=== PATIENT | female | born 1980 | race Caucasian/White ===

== ENCOUNTER 2017-04-26 08:28 | Emergency (ER) | payer SELFPAY ==
[~2017-04-26] VITALS: Ht 157.5 cm; Wt 52.0 kg
[2017-04-26 08:31] VITALS: Ht 157.5 cm; Wt 52.0 kg
[2017-04-26] MEDS ORDERED: LIDOCAINE 1% (MDV) 20 ML INJ SC ONE (09:00)
[2017-04-26] MEDS ORDERED: IBUP400T22 PO (09:04)
--- NOTE | 2017-04-26 09:14 | ERD ---
ER Documentation Chief Complaint Chief Complaint Laceration to left forearm today HPI 37-year-old female patient with no significant past medical history presents to the ED complaining of a laceration to her left forearm that occurred earlier today as she was cooking. States that she was trying to make scrambled eggs and accidently cut her left forearm with a clean knife as she was cutting foot going into the scrambled eggs. Denies any fever, chills, loss of sensation, loss of range of motion, nausea, vomiting. Patient states that she is up-to- date with her tetanus vaccine. ROS All systems reviewed and are negative except as per history of present illness. Medications Home Meds Active Scripts Ibuprofen* (Motrin*) 400 Mg Tab, 400 MG PO Q6, #30 TAB Prov:RAINE LORENZO PA-C 04/26/17 Allergies Allergies: Coded Allergies: No Known Allergy (Unverified , 04/26/17) PMhx/Soc Hx Alcohol Use: No Hx Substance Use: No Hx Tobacco Use: No Smoking Status: Never smoker Physical Exam Vitals Vital Signs Date Time Temp Pulse Resp B/P Pulse Ox O2 Delivery O2 Flow Rate FiO2 04/26/17 08:31 99.1 77 20 123/83 100 Physical Exam Const: [id number], well-nourished. In no acute distress. Head: Atraumatic, normocephalic Eyes: Normal Conjunctiva without injection ENT: Normal external ear, nose and mouth. Neck: Full range of motion. No meningismus. Resp: Clear to auscultation bilaterally. No wheezing, rhonchi, rales, or crackles. No accessory muscle use. No retractions. Cardio: Regular rate and rhythm, no murmurs Skin: No petechiae or rashes Back: No midline tenderness. No CVA tenderness. Ext: No cyanosis, or edema. Cap refill less than 2 seconds. Distal pulses intact bilaterally. 3 cm linear horizontal laceration on the mid forearm. No visualizations of foreign bodies or tendons or ligaments. No erythema or edema. No bleeding noted. No purulent discharge. No functions or induration. Full range of motion of the DIP, PIP, MCP, wrist, elbow joints of bilateral upper extremities with flexion, extension, supination and pronation. Neur: Awake and alert. Normal gait and coordination. Muscle strength 5/5. Sensation intact bilaterally. Psych: Normal Mood and Affect Results 24 hrs Current Medications Medications (Trade) Dose Ordered Sig/Lor Route PRN Reason Start Time Stop Time Status Last Admin Dose Admin Lidocaine (Xylocaine 1% (Mdv) 20 ml) 20 ml ONCE ONCE SC 04/26/17 09:00 04/26/17 09:01 DC Procedures/MDM This is a 37-year-old female patient with no significant past medical history resents to the ED complaining of a laceration to her left forearm. Patient is afebrile and nontoxic-appearing. Patient has normal vital signs. Patient gave consent to perform laceration repair. Laceration Repair by me: Anesthesia: 5 cc 1% lidocaine locally Location: [left mid forearm, volar aspect] Tendon/Joint/Nerves: No injury Foreign body: None detected after copious irrigation and exploration Technique: 5 5-0 Ethilon Simple Interrupted Sutures Complexity: No subcutaneous sutures/mucosal repair/ edge excision Post Closure Length: [3] cm Patient's bleeding was easily controlled in the department and there is no indication of anemia. Patient is neurovascularly intact. No evidence of compartment syndrome, neurologic injury, fractures, dislocations, vascular injury, open joint, tendon laceration, or foreign body. Patient is appropriate for outpatient follow up. 48 hour wound check. Scar minimization instructions given. Instructed patient to return for suture removal in 7-10 days. Instructed patient to return to the ED sooner for any worsening symptoms. Follow up with primary care physician in 2-3 days. Patient's questions were answered. Patient understood and agreed with discharge plan. Departure Diagnosis: Primary Impression: Forearm laceration Encounter type: initial encounter Laterality: left Qualified Code: S51.812A - Laceration of left forearm, initial encounter Condition: Stable Patient Instructions: Laceration, Extrem (Suture, Staple, Or Tape) Referrals: COMMUNITY CLINICS YOU HAVE RECEIVED A MEDICAL SCREENING EXAM AND THE RESULTS INDICATE THAT YOU DO NOT HAVE A CONDITION THAT REQUIRES URGENT TREATMENT IN THE EMERGENCY DEPARTMENT. FURTHER EVALUATION AND TREATMENT OF YOUR CONDITION CAN WAIT UNTIL YOU ARE SEEN IN YOUR DOCTORS OFFICE WITHIN THE NEXT 1-2 DAYS. IT IS YOUR RESPONSIBILITY TO MAKE AN APPOINTMENT FOR FOLOW-UP CARE. IF YOU HAVE A PRIMARY DOCTOR --you should call your primary doctor and schedule an appointment IF YOU DO NOT HAVE A PRIMARY DOCTOR YOU CAN CALL OUR PHYSICIAN REFERRAL HOTLINE AT IF YOU CAN NOT AFFORD TO SEE A PHYSICIAN YOU CAN CHOSE FROM THE FOLLOWING ON LICENSE OF [facility] CLINICS [facility] [address] [facility] [address] [facility] [address] [facility] [address] [facility] [address] [facility]. [facility]. [address] [facility]. [facility] YOU HAVE RECEIVED A MEDICAL SCREENING EXAM AND THE RESULTS INDICATE THAT YOU DO NOT HAVE A CONDITION THAT REQUIRES URGENT TREATMENT IN THE EMERGENCY DEPARTMENT. FURTHER EVALUATION AND TREATMENT OF YOUR CONDITION CAN WAIT UNTIL YOU ARE SEEN IN YOUR DOCTORS OFFICE WITHIN THE NEXT 1-2 DAYS. IT IS YOUR RESPONSIBILITY TO MAKE AN APPOINTMENT FOR FOLOW-UP CARE. IF YOU HAVE A PRIMARY DOCTOR --you should call your primary doctor and schedule and appointment IF YOU DO NOT HAVE A PRIMARY DOCTOR YOU CAN CALL OUR PHYSICIAN REFERRAL HOTLINE AT . IF YOU CAN NOT AFFORD TO SEE A PHYSICIAN YOU CAN CHOSE FROM THE FOLLOWING [facility] INSTITUTIONS: [facility] [address] [place] [address] [facility] [address] [place] [address] [facility] [address] [place] [address] [facility] URGENT CARE/SPECIALTIES Additional Instructions: Llame al doctor DAVE y ben saniya PADDY PARA DENTRO DE 2-3 FLORES.Dgale a la secretaria que nosotros le instruimos hacer esta paddy.Avise o llame si sal condicin se empeora antes de la paddy. Regresa aqui si peor o no mejor. WOUND CHECK:CONSULTE A SAL MDICO EN 2 jones para nela SAL HERIDA. SUTURE REMOVAL:CONSULTE A SAL MDICO PARA SACAR SAL PUNTOS.PARA LA SHARMILA 5-6 d as.EN OTRO LUGAR 7-10 jones. RAINE LORENZO PA-C Apr 26, 2017 09:14
== END 2017-04-26 09:21 | disposition home or self-care (01) ==
LOC: FTE 08:28
DX: S51.812A Laceration without foreign body of left forearm, initial encounter (principal); W26.0XXA Contact with knife, initial encounter; Y92.9 Unspecified place or not applicable

== ENCOUNTER 2017-04-28 20:45 | Emergency (ER) | payer SELFPAY ==
[~2017-04-28 20:45] MED LIST: IBUP400T22 PO
== END 2017-04-28 21:00 | disposition left against medical advice (07) ==
LOC: E/R 20:45
DX: Z53.21 Procedure and treatment not carried out due to patient leaving prior to being seen by health care provider (principal)

== ENCOUNTER 2017-05-03 08:41 | Emergency (ER) | payer SELFPAY ==
[~2017-05-03] VITALS: Ht 152.4 cm; Wt 51.1 kg
[2017-05-03 08:43] VITALS: Ht 152.4 cm; Wt 51.1 kg
--- NOTE | 2017-05-03 08:59 | ERD ---
ER Documentation Chief Complaint Chief Complaint Patient here for suture removal HPI Patient is a 37-year-old female presents ED for concerns for suture removal. Patient sustained a laceration on 04/26/2017. Patient sustained a laceration to her left forearm while she was cooking. Patient denies any bleeding or discharge from the laceration site. Patient denies any redness or swelling. Patient denies any fevers or chills. Patient is up-to-date with her tetanus vaccination. Patient has no other concerns or complaints at this time. ROS All systems reviewed and are negative except as per history of present illness. Medications Home Meds Active Scripts Ibuprofen* (Motrin*) 400 Mg Tab, 400 MG PO Q6, #30 TAB Prov:RAINE LORENZO PA-C 04/26/17 Allergies Allergies: Coded Allergies: No Known Allergy (Unverified , 05/03/17) PMhx/Soc Medical and Surgical Hx: pt denies Medical Hx, pt denies Surgical Hx Hx Alcohol Use: No Hx Substance Use: No Hx Tobacco Use: No Smoking Status: Never smoker Physical Exam Vitals Vital Signs Date Time Temp Pulse Resp B/P Pulse Ox O2 Delivery O2 Flow Rate FiO2 05/03/17 08:43 98.2 71 20 119/74 100 Physical Exam GENERAL: Well-developed, well-nourished female. Appears in no acute distress. HEAD: Normocephalic, atraumatic. EYES: Pupils are equally reactive bilaterally. EOMs grossly intact. No conjunctival erythema. NECK: Supple. No meningismus. Normal range of motion of the neck. EXTREMITIES: Equal pulses bilaterally. No peripheral clubbing, cyanosis or edema. No unilateral leg swelling. NEUROLOGIC: Alert and oriented. Moving all four extremities without any difficulty. Normal speech. Steady gait. SKIN: 3 cm linear horizontal healing laceration to the mid left forearm. [address] No wound dehiscence noted. No bleeding or discharge. No erythema or warmth or surrounding laceration site. Procedures/MDM MEDICAL DECISION MAKING: This is a 37-year-old female presents ED for concerns of suture removal from laceration she sustained to her left forearm.. Vital signs were reviewed. Patient is afebrile. The wound appears to be healing well with no concerns of acute infection at this time. Five sutures were removed without any difficulty. Small area of wound dehiscence was noted. Steri-Strips were placed over this area. No bleeding noted. Tetanus is up-to-date. Post- procedural wound care was discussed with the patient. Low suspicion for tendon or neurovascular injury. PRESCRIPTIONS: None DISCHARGE: At this time, the patient is stable for discharge and outpatient management. Post-procedural wound care was discussed with the patient. I have instructed the patient to promptly return to the ER for any new or worsening symptoms including increasing pain, fever, warmth, redness or swelling. The patient and/ or family expressed understanding of and agreement with this plan. All questions were answered. Home care instructions were provided. Departure Diagnosis: Primary Impression: Encounter for removal of sutures Condition: Stable Patient Instructions: Staple Removal, No Complication Referrals: [facility] YOU HAVE RECEIVED A MEDICAL SCREENING EXAM AND THE RESULTS INDICATE THAT YOU DO NOT HAVE A CONDITION THAT REQUIRES URGENT TREATMENT IN THE EMERGENCY DEPARTMENT. FURTHER EVALUATION AND TREATMENT OF YOUR CONDITION CAN WAIT UNTIL YOU ARE SEEN IN YOUR DOCTORS OFFICE WITHIN THE NEXT 1-2 DAYS. IT IS YOUR RESPONSIBILITY TO MAKE AN APPOINTMENT FOR FOLOW-UP CARE. IF YOU HAVE A PRIMARY DOCTOR --you should call your primary doctor and schedule an appointment IF YOU DO NOT HAVE A PRIMARY DOCTOR YOU CAN CALL OUR PHYSICIAN REFERRAL HOTLINE AT IF YOU CAN NOT AFFORD TO SEE A PHYSICIAN YOU CAN CHOSE FROM THE FOLLOWING [facility] [address] [facility]. [facility] [address] [facility]. [facility] [address] [facility] [address] [facility] [address] [facility]. [facility]. [address] [facility]. [facility] YOU HAVE RECEIVED A MEDICAL SCREENING EXAM AND THE RESULTS INDICATE THAT YOU DO NOT HAVE A CONDITION THAT REQUIRES URGENT TREATMENT IN THE EMERGENCY DEPARTMENT. FURTHER EVALUATION AND TREATMENT OF YOUR CONDITION CAN WAIT UNTIL YOU ARE SEEN IN YOUR DOCTORS OFFICE WITHIN THE NEXT 1-2 DAYS. IT IS YOUR RESPONSIBILITY TO MAKE AN APPOINTMENT FOR FOLOW-UP CARE. IF YOU HAVE A PRIMARY DOCTOR --you should call your primary doctor and schedule and appointment IF YOU DO NOT HAVE A PRIMARY DOCTOR YOU CAN CALL OUR PHYSICIAN REFERRAL HOTLINE AT . IF YOU CAN NOT AFFORD TO SEE A PHYSICIAN YOU CAN CHOSE FROM THE FOLLOWING [facility]: [facility] [address] [place] [address] [facility] [address] [place] [address] [facility] [address] [place] [address] Additional Instructions: Call your primary care doctor TOMORROW for an appointment during the next 1-2 days.See the doctor sooner or return here if your condition worsens before your appointment time. MAEGAN AVALOS PA-C May 03, 2017 08:59
== END 2017-05-03 09:23 | disposition home or self-care (01) ==
LOC: FTE 08:41
DX: Z48.02 Encounter for removal of sutures (principal)
CPT/HCPCS: 99281

== ENCOUNTER 2018-12-03 23:30 | Emergency (ER) | payer SELFPAY ==
[~2018-12-03] VITALS: Ht 160 cm; Wt 56.7 kg
[~2018-12-03 23:30] MED LIST changes: +IBUP-1561 PO; -IBUP400T22 PO
[2018-12-03 23:31] VITALS: Ht 160 cm; Wt 56.7 kg
--- NOTE | 2018-12-04 00:43 | ERD ---
ER Documentation Chief Complaint Chief Complaint LAC TO LEFT FOOT 9 DAYS AGO; WAS HEALING, OPENED UP AGAIN YESTERDAY HPI This is a 38-year-old female who presents here in the emergency department with complaints of left foot laceration that started 9 days ago after hitting a metal door. 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 Patient stated that the laceration has reopened. Stated that she is concerned that this might have an infection. LMP: Denies headache, head injury, loss of consciousness, dizziness, neck pain, neck stiffness, throat pain, difficulty swallowing, difficulty breathing lying flat, shoulder pain, chest pain, back pain, abdominal pain, nausea, vomiting, constipation, diarrhea, urinary symptoms, or possibility being , loss of bowel and bladder control, difficulty walking due to pain, numbness or tingling sensation, calf pain, recent travel, recent major surgery in the last 3 weeks, calf pain, recent long travel, recent exposure to any illness, recent antibiotic use in the last 3 months, fever, chills, seizures. Past medical history: Denies. Surgical history: . Right breast surgery. Social: Denies smoking, use of alcoholic beverages, use of illegal drugs. ROS All systems reviewed and are negative except as per history of present illness. Medications Home Meds Active Scripts Cephalexin* (Keflex*) 500 Mg Capsule, 500 MG PO TID for 7 Days, CAP Prov:PASILABAN,KLAR F 12/04/18 Ibuprofen* (Motrin*) 600 Mg Tab, 600 MG PO Q6H PRN for PAIN AND OR ELEVATED TEMP, #30 TAB Prov:PASILABAN,KLAR F 12/04/18 Ibuprofen* (Motrin*) 400 Mg Tab, 400 MG PO Q6, #30 TAB Prov:RAINE LORENZO PA-C 04/26/17 Allergies Allergies: Coded Allergies: No Known Allergy (Unverified , 05/03/17) PMhx/Soc Medical and Surgical Hx: pt denies Medical Hx, pt denies Surgical Hx Hx Alcohol Use: No Hx Substance Use: No Hx Tobacco Use: No Smoking Status: Never smoker Physical Exam Vitals Physical Exam Const: No acute distress Head: Atraumatic Eyes: Normal Conjunctiva ENT: Normal External Ears, Nose and Mouth. Neck: Full range of motion. No meningismus. Resp: Clear to auscultation bilaterally Cardio: Regular rate and rhythm, no murmurs Abd: Soft, non tender, non distended. Normal bowel sounds Skin: No petechiae or rashes Back: No midline or flank tenderness Ext: No cyanosis, or edema. Left foot: Dorsal area of the third and fourth digit has a laceration measuring approximately 1 cm in length. No active bleeding. Left pedal pulses within normal limits. Left first/second/third/fourth/fifth toes are unremarkable. No subungual hematoma. Left ankle is unremarkable. Neur: Awake and alert Psych: Normal Mood and Affect Results 24 hrs Laboratory Tests Test 12/04/18 00:45 POC Beta HCG, Qualitative NEGATIVE Current Medications Medications Dose Sig/Lor Start Time Status Last (Trade) Ordered Route PRN Stop Time Admin Dose Reason Admin Diphtheria/ 0.5 ml ONCE ONCE 12/04/18 DC 12/04/18 Tetanus/Acell IM* 01:00 00:53 Pertussis 12/04/18 01:01 (Adacel) Procedures/MDM Diagnostic tests: POC urine : Negative. X-ray of the left foot: No definite acute fracture or dislocation. Treatment: Adacel IM. Wound cleaning. Re-evaluation: No active bleeding. Left pedal pulses within normal limits. Capillary refills to left lower extremity is less than 2 seconds. No neurovascular deficit. Ambulatory with steady gait. Differential diagnosis I have low suspicion for open fracture, displaced fracture, subungual hematoma, deep space infection. Final diagnosis: Laceration. Prescription: Motrin. Keflex. Follow-up with PCP in the next 24-48 hours. Come back here in the emergency department for any new symptoms or any worsening symptoms. All questions and concerns were answered. Patient and family members verbalized understanding and agreed with plan of care. Hemodynamically stable on discharge. Departure Diagnosis: Primary Impression: Laceration Condition: Stable Additional Instructions: Follow-up with PCP in the next 24-48 hours. Come back here in the emergency department for any new symptoms or any worsening symptoms. CECILIA BOWERS Dec 04, 2018 00:43
[2018-12-04] MEDS ORDERED: CEPH-443 PO (00:45)
[2018-12-04] MEDS ORDERED: IBUP-1542 PO (00:45)
[2018-12-04] MEDS ORDERED: DIPHTH/TET/ACEL PERTUSS (ADULT) 0.5 ML VIAL IM* ONE (01:00)
[2018-12-04 03:15] VITALS: BP 123/79; PULSE 75; RESP 18
== END 2018-12-04 03:15 | disposition home or self-care (01) ==
LOC: FTE 23:30
DX: S91.312A Laceration without foreign body, left foot, initial encounter (principal); Y28.8XXA Contact with other sharp object, undetermined intent, initial encounter; Y92.9 Unspecified place or not applicable; Z23 Encounter for immunization
CPT/HCPCS: 81025; 90471; 90715

== ENCOUNTER 2018-12-06 08:24 | Emergency (ER) | payer SELFPAY ==
[~2018-12-06] VITALS: Ht 157.5 cm; Wt 55.9 kg
[~2018-12-06 08:24] MED LIST changes: +CEPH-443 PO; +IBUP-1542 PO
[2018-12-06 08:28] VITALS: BP 139/92; PULSE 58; RESP 16; Ht 157.5 cm; Wt 55.9 kg
--- NOTE | 2018-12-06 09:41 | ERD ---
ER Documentation Chief Complaint Chief Complaint 2nd day wound check left foot HPI The 38-year-old female presenting for a wound check. She reports that she cut her webspace between her third and fourth toe on the left foot about 2 weeks ago. It was healing nicely but then reopened and she was concerned about inf ection which is why she presented to the ED about 2 days ago. She was examined and stitches were not necessary at the time. Patient was discharged with prescriptions for Keflex and Motrin which she has been taking appropriately. She denies any signs of infection, loss of sensation, loss of motor function, loss of strength. She reports that it is healing nicely and she has no concerns for infection at this time. He denies any new complaints today. ROS All systems reviewed and are negative except as per history of present illness. Medications Home Meds Active Scripts Cephalexin* (Keflex*) 500 Mg Capsule, 500 MG PO TID for 7 Days, CAP Prov:PASILABAN,KLAR F 12/04/18 Ibuprofen* (Motrin*) 600 Mg Tab, 600 MG PO Q6H PRN for PAIN AND OR ELEVATED TEMP, #30 TAB Prov:PASILABAN,KLAR F 12/04/18 Ibuprofen* (Motrin*) 400 Mg Tab, 400 MG PO Q6, #30 TAB Prov:RAINE LORENZO PA-C 04/26/17 Allergies Allergies: Coded Allergies: No Known Allergy (Unverified , 05/03/17) PMhx/Soc Medical and Surgical Hx: pt denies Medical Hx, pt denies Surgical Hx Hx Alcohol Use: No Hx Substance Use: No Hx Tobacco Use: No Smoking Status: Never smoker FmHx Family History: No diabetes Physical Exam Vitals Vital Signs Date Temp Pulse Resp B/P (MAP) Pulse Ox O2 O2 Flow FiO2 Time Delivery Rate 12/06/18 97.9 58 16 139/92 99 08:28 (108) Physical Exam Const: No acute distress Head: Atraumatic Eyes: Normal Conjunctiva ENT: Normal External Ears, Nose and Mouth. Neck: Full range of motion. Resp: Clear to auscultation bilaterally Cardio: Regular rate and rhythm, Abd: Soft, non tender, non distended. Skin: No petechiae or rashes Back: No midline or flank tenderness Ext: Left foot: Dorsal area of the third and fourth digit has a laceration measuring approximately 1 cm in length. No active bleeding. Left pedal pulses within normal limits. Left first/second/third/fourth/fifth toes are unremarkable. No subungual hematoma. Left ankle is unremarkable. Neur: Awake and alert Psych: Normal Mood and Affect Procedures/MDM ED COURSE: The patient was stable throughout ED course. I kept the patient informed of laboratory and diagnostic imaging results throughout the ED course. MEDICATIONS GIVEN: [None.] MEDICAL DECISION MAKING: Patient is a 38-year-old female presenting for wound check for a laceration between the third and fourth webspaces of her left foot. She presented to the ED 2 days ago and was examined by practitioner. Stitches were not necessary at the time and she was discharged with Keflex and Motrin. Today she denies any new symptoms, any new fevers, any new pain. Looking at the laceration it looks to be healing properly without any signs of infection. At this time I do not think an infection is likely, I do not think any rashes have developed any dermatitis any anaphylaxis or allergies have developed. Vital signs were reviewed. Patient is afebrile. Patient was not hypoxic. Patient was hemodynamically stable. PRESCRIPTION: None DISCHARGE: At this time, patient is stable for discharge and outpatient management. I have instructed the patient to follow-up with his/her primary care physician in 1-2 days. I have discussed with the patient the possibility of needing to see a specialist for further workup and imaging studies if symptoms persist. I have instructed the patient to promptly return to the ER for any new or worsening symptoms including increased pain, fever, nausea, vomiting, weakness or LOC. The patient and/or family expressed understanding of and agreement with this plan. All questions were answered. Home care instructions were provided. Disclaimer: Inadvertent spelling and grammatical errors are likely due to EHR/dictation software use and do not reflect on the overall quality of patient care. Also, please note that the electronic time recorded on this note does not necessarily reflect the actual time of the patient encounter. Departure Diagnosis: Primary Impression: Encounter for re-check of laceration wound Condition: Stable Patient Instructions: Wound Care Referrals: COMMUNITY CLINICS YOU HAVE RECEIVED A MEDICAL SCREENING EXAM AND THE RESULTS INDICATE THAT YOU DO NOT HAVE A CONDITION THAT REQUIRES URGENT TREATMENT IN THE EMERGENCY DEPARTMENT. FURTHER EVALUATION AND TREATMENT OF YOUR CONDITION CAN WAIT UNTIL YOU ARE SEEN IN YOUR DOCTORS OFFICE WITHIN THE NEXT 1-2 DAYS. IT IS YOUR RESPONSIBILITY TO MAKE AN APPOINTMENT FOR FOLOW-UP CARE. IF YOU HAVE A PRIMARY DOCTOR --you should call your primary doctor and schedule an appointment IF YOU DO NOT HAVE A PRIMARY DOCTOR YOU CAN CALL OUR PHYSICIAN REFERRAL HOTLINE AT IF YOU CAN NOT AFFORD TO SEE A PHYSICIAN YOU CAN CHOSE FROM THE FOLLOWING [facility] [address] [facility] [address] [facility] [address] [facility] [address] [facility] [address] [facility]. [facility] [address] [facility]. [facility] YOU HAVE RECEIVED A MEDICAL SCREENING EXAM AND THE RESULTS INDICATE THAT YOU DO NOT HAVE A CONDITION THAT REQUIRES URGENT TREATMENT IN THE EMERGENCY DEPARTMENT. FURTHER EVALUATION AND TREATMENT OF YOUR CONDITION CAN WAIT UNTIL YOU ARE SEEN IN YOUR DOCTORS OFFICE WITHIN THE NEXT 1-2 DAYS. IT IS YOUR RESPONSIBILITY TO MAKE AN APPOINTMENT FOR FOLOW-UP CARE. IF YOU HAVE A PRIMARY DOCTOR --you should call your primary doctor and schedule and appointment IF YOU DO NOT HAVE A PRIMARY DOCTOR YOU CAN CALL OUR PHYSICIAN REFERRAL HOTLINE AT . IF YOU CAN NOT AFFORD TO SEE A PHYSICIAN YOU CAN CHOSE FROM THE FOLLOWING [facility]: [facility] [address] [place] [address] [facility] [address] [place] [address] [facility] [address] [place] [address] Additional Instructions: Call your primary care doctor TOMORROW for an appointment during the next 2-3 days.See the doctor sooner or return here if your condition worsens before your appointment time. SHERRY TEE PA-C Dec 06, 2018 09:41
== END 2018-12-06 10:12 | disposition home or self-care (01) ==
LOC: FTE 08:24
DX: Z48.01 Encounter for change or removal of surgical wound dressing (principal)
CPT/HCPCS: 99281

== ENCOUNTER → 2018-12-26 | Emergency (ER) | payer SELFPAY ==
[~2018-12-26] VITALS: Wt 55.0 kg
[~2018-12-26] MED LIST changes: +CEPH500C PO
[2018-12-26 10:10] VITALS: BP 131/76; PULSE 55; RESP 18
--- NOTE | 2018-12-26 13:41 | ERD ---
ER Documentation Chief Complaint Chief Complaint LEFT FOOT SWELLING INTERMITTENT FOR THE PAST MONTH. NO DEFORMITY HPI 38-year-old female, previously healthy, presents to the emergency department, complaining of intermittent episodes of erythema, warmth and edema of the left leg after sustaining a laceration 4 weeks ago. The patient denies fever, no chills, no shortness of breath. ROS All systems reviewed and are negative except as per history of present illness. Medications Home Meds Active Scripts Ibuprofen* (Motrin*) 600 Mg Tab, 600 MG PO Q8, #20 TAB Prov:NIKO LARRY MD 12/26/18 Cephalexin* (Cephalexin*) 500 Mg Capsule, 500 MG PO Q8 for 7 Days, #21 CAP Prov:NIKO LARRY MD 12/26/18 Cephalexin* (Keflex*) 500 Mg Capsule, 500 MG PO TID for 7 Days, CAP Prov:PASILABAN,RIKIAR F 12/04/18 Ibuprofen* (Motrin*) 600 Mg Tab, 600 MG PO Q6H PRN for PAIN AND OR ELEVATED TEMP, #30 TAB Prov:PASILABAN,KLAR F 12/04/18 Ibuprofen* (Motrin*) 400 Mg Tab, 400 MG PO Q6, #30 TAB Prov:RAINE LORENZO PA-C 04/26/17 Allergies Allergies: Coded Allergies: No Known Allergy (Unverified , 05/03/17) PMhx/Soc Medical and Surgical Hx: pt denies Medical Hx, pt denies Surgical Hx Hx Alcohol Use: No Hx Substance Use: No Hx Tobacco Use: No Smoking Status: Never smoker FmHx Family History: No diabetes, No coronary disease Physical Exam Vitals Vital Signs Date Temp Pulse Resp B/P (MAP) Pulse Ox O2 O2 Flow FiO2 Time Delivery Rate 12/26/18 98.1 55 18 131/76 98 10:10 (94) Physical Exam Const: No acute distress Head: Atraumatic Eyes: Normal Conjunctiva ENT: Normal External Ears, Nose and Mouth. Neck: Full range of motion. No meningismus. Resp: Clear to auscultation bilaterally Cardio: Regular rate and rhythm, no murmurs Abd: Soft, non tender, non distended. Normal bowel sounds Skin: No petechiae or rashes Back: No midline or flank tenderness Ext: Left foot: 2 cm linear laceration with mild erythema and tenderness. No cyanosis, or edema Neur: Awake and alert Psych: Normal Mood and Affect Procedures/MDM Vital signs stable, differential diagnosis include but not limited to: DVT, superficial thrombosis, cellulitis, erysipelas, shingles, abscess. Low suspici on for acute systemic infectious process. Physical examination and clinical presentation consistent most likely with cellulitis of the left foot without evidence of abscess formation. During the ED course the patient remained stable, no new complaints. The patient Results and clinical impression discussed with the patient who agrees with management. The patient is stable to be treated outpatient and will be discharged home with a Rx for antibiotics, anti-inflammatories, some side effects of prescribed medications (headache, rash, nausea, vomiting, diarrhea, drowsiness, habituation, bleeding, hypertension, interactions with other me dications) were reviewed. The patient was instructed to follow up with the primary care provider in the next 48h. If symptoms persist, worsen or new symptoms develop, then patient should return to the ED immediately. Instructions explained and given directly by me to the patient and relatives with acknowledgment and demonstrated understanding. Disclaimer: Inadvertent spelling and grammatical errors are likely due to EHR/dictation software use and do not reflect on the overall quality of patient care. Also, please note that the electronic time recorded on this note does not necessarily reflect the actual time of the patient encounter. Departure Diagnosis: Primary Impression: Cellulitis of foot, left Condition: Stable Additional Instructions: Thank you very much for allowing us to participate in your care. Your health and safety is our top priority at [facility]. The evaluation in the emergency department has been done to rule out an acute emergency. Chronic, [id number] conditions may have not been evaluated; therefore, you need to follow up with a primary care provider in the next 48h. If symptoms persist, worsen or new symptoms develop, then patient should return to the ED immediately. Call your primary care doctor TOMORROW for an appointment during the next 2-4 days and bring all the information provided. Have prescriptions filled and follow precisely the directions on the label. If the symptoms get worse and your provider is unavailable, return to the Emergency Department immediately. NIKO LARRY MD Dec 26, 2018 13:41
== END | disposition home or self-care (01) ==
LOC: FTE 10:07
DX: L03.116 Cellulitis of left lower limb (principal)
CPT/HCPCS: 99283

== ENCOUNTER 2019-02-01 16:03 | Emergency (ER) | payer SELFPAY ==
[~2019-02-01] VITALS: Ht 152.4 cm; Wt 56.6 kg
[2019-02-01 16:08] VITALS: Ht 152.4 cm; Wt 56.6 kg
[2019-02-01 20:46] VITALS: BP 127/87; PULSE 69; RESP 20
== END 2019-02-01 20:48 | disposition home or self-care (01) ==
LOC: FTE 16:03
DX: M79.672 Pain in left foot (principal)
CPT/HCPCS: 93926; 93971